=== PATIENT | female | born 1945 | race Hispanic/Latino ===

== ENCOUNTER 2017-01-23 07:52 | Day surgery (SDC) | payer MEDICARE, OTHER ==
[2015-06-29 10:13] VITALS: BMI 20.7
[2017-01-23] MEDS ORDERED: Propofol 10 mg/ml Inj (20 ML) ONE (09:15)
[2017-01-23] MEDS ORDERED: ePHEDrine 50 mg/ml Inj ONE (10:18)
[2017-01-23] MEDS ORDERED: Sodium Chloride 0.9% 1,000 ML IV SCH (10:30)
[2017-01-23 11:57] VITALS: BP 120/78; PULSE 65; RESP 16; TEMP 97.8; O2SAT 99
== END 2017-01-23 12:13 | disposition home or self-care (01) ==
LOC: ENDO 07:52
PROVIDERS: ATTEND Internal Medicine Gastroenterology
DX: Z12.11 Encounter for screening for malignant neoplasm of colon (principal); Z85.038 Personal history of other malignant neoplasm of large intestine; K57.30 Diverticulosis of large intestine without perforation or abscess without bleeding; K29.80 Duodenitis without bleeding; K29.50 Unspecified chronic gastritis without bleeding; D64.9 Anemia, unspecified; K64.8 Other hemorrhoids
CPT/HCPCS: 43239; 45380; 88305; 88342; J2001; J2704; J3010; J7040 ×2

== ENCOUNTER 2017-04-24 18:06 | Observation (INO) | payer MEDICARE, OTHER ==
[2017-04-24 18:42] VITALS: O2SAT 96
[2017-04-24] MEDS ORDERED: TDAP Vaccine 0.5 mL Syr IM ONE (19:06)
--- NOTE | 2017-04-24 21:07 | CT ---
EXAM: CT Head Without Intravenous Contrast EXAM DATE/TIME: 04/24/2017 7:06 PM CLINICAL HISTORY: The patient age is 71 years old and is female; Injury or trauma; Fall; Initial encounter; Abrasion; Face and forehead; Injury date: 04-24-17; Injury details: Abrasion to lt forehead and lt cheek; Patient HX: HX colon ca, HX lt breast ca 2007, recurrent lt breast ca 06/22; Additional info: Fall/ head injury Facility exam id and description: Ct heads head w/o contrast TECHNIQUE: Axial computed tomography images of the head/brain without intravenous contrast. All CT scans at this facility use one or more dose reduction techniques, viz.: automated exposure control; ma/kV adjustment per patient size (including targeted exams where dose is matched to indication; i.e. head); or iterative reconstruction technique. Coronal and sagittal reformatted images were created and reviewed. COMPARISON: No relevant prior studies available. FINDINGS: Brain: There is minimal increased density in the left anterior parafalcine region, which may represent a vessel although a small amount of extra-axial hemorrhage is suggested. This is visualized on series 2 image 13. There are small periventricular foci of hypodensity, likely representing small vessel ischemic disease in a patient this age. The acuity of the white matter disease is indeterminate. The white-villarreal differentiation is preserved demonstrating no acute territorial type infarct. There is mild prominence of the ventricles, with slight prominence of the sulci, compatible with atrophy. Midline shift: There is no midline shift. Ventricles: See above. Bones/joints: The calvarium demonstrates no evidence for a depressed fracture. Soft tissues: There is soft tissue swelling/hematoma of the left frontal scalp. Vasculature: There is atherosclerotic calcification of the cavernous internal carotid arteries. Sinuses: No acute sinusitis. Mastoid air cells: No mastoid effusion. IMPRESSION: 1. There is soft tissue swelling/hematoma of the left frontal scalp. 2. There is minimal increased density in the left anterior parafalcine region, which may represent a vessel, although a small amount of extra-axial hemorrhage is suggested. A follow-up CT in 12-24 hours is recommended. 3. No acute territorial type infarct. 4. Minimal to mild atrophy. 5. There are small periventricular foci of hypodensity, likely representing small vessel ischemic disease in a patient this age.
--- NOTE | 2017-04-24 21:12 | CT ---
EXAM: CT Maxillofacial Without Intravenous Contrast EXAM DATE/TIME: 04/24/2017 7:06 PM CLINICAL HISTORY: The patient age is 71 years old and is female; Injury or trauma; Fall; Initial encounter; Abrasion; Cheek bone and forehead; Left; Injury date: 04-24-17; Injury details: Abrasion to lt forehead and lt cheek; Patient HX: HX colon ca, HX lt breast ca 2007, recurrent lt breast ca 06/22; Additional info: Fall, facial injury Facility exam id and description: Ct faces maxillofacial w/o contrast TECHNIQUE: Axial computed tomography images of the face without intravenous contrast. All CT scans at this facility use one or more dose reduction techniques, viz.: automated exposure control; ma/kV adjustment per patient size (including targeted exams where dose is matched to indication; i.e. head); or iterative reconstruction technique. Coronal and sagittal reformatted images were created and reviewed. COMPARISON: No relevant prior studies available. FINDINGS: Bones/joints: No acute facial bone fracture is visualized. Soft tissues: There is mild soft tissue swelling/hematoma of the left frontal scalp. Orbits: There is small focus of gas is visualized superior to each optic globe, likely within the superior conjunctival fornices. This is likely incidental. No retrobulbar hematoma or post septal swelling is visualized within the orbits. Sinuses: There is minimal mucosal thickening with a small mucous retention cyst or polyp in the left maxillary sinus. Dental: Multiple teeth are absent. Nasopharynx: There is mild nasal septal deviation to the right. IMPRESSION: 1. No acute facial bone fracture is visualized. 2. There is mild soft tissue swelling/hematoma of the left frontal scalp. 3. Additional findings described above.
--- NOTE | 2017-04-24 21:31 | ED PDOC ---
Arrival/HPI - General Historian: Patient - History of Present Illness Time/Duration: Other (17:00 today) Context: Tripped <Erica Medrano - Last Filed: 04/25/17 10:31> <Jen Barron - Last Filed: 04/25/17 15:38> - General Chief Complaint: Trauma Time Seen by Provider: 04/24/17 19:05 - History of Present Illness Narrative History of Present Illness (Text): 04/24/17 21:30 A 71 year old female presents to the emergency department with a contusion to her forehead s/p mechanical fall at approximately 17:00. Patient reports she tripped while walking on the sidewalk and fell hitting her forehead on the ground. Patient denies any other injuries, loss of consciousness, headache, dizziness, neck pain, nausea, vomiting, abdominal pain, back pain, chest pain, shortness of breath, extremity pain or any other complaints. Patient is unsure of her last tetanus shot. PMD: Dr. Randolph (Erica Medrano) Past Medical History - Provider Review Nursing Documentation Reviewed: Yes - Cardiac Hx Hypertension: Yes - Pulmonary Hx Respiratory Disorders: No - Neurological Hx Neurological Disorder: No Hx Paralysis: No - HEENT Hx HEENT Disorder: No - Renal Hx Renal Disorder: No - Endocrine/Metabolic Hx Endocrine Disorders: No - Hematological/Oncological Hx Blood Transfusions: Yes (9 YRS AGO) Hx Blood Transfusion Reaction: No - Integumentary Other/Comment: CA of left breast and colon ca - Musculoskeletal/Rheumatological Hx Musculoskeletal Disorders: No - Gastrointestinal Hx Gastrointestinal Disorders: No - Genitourinary/Gynecological Hx Genitourinary Disorders: No - Psychiatric Hx Psychophysiologic Disorder: No Hx Emotional Abuse: No Hx Physical Abuse: No Hx Substance Use: No - Surgical History Other/Comment: ca left breast, colon ca - Anesthesia Hx Anesthesia Reactions: No Hx Malignant Hyperthermia: No - Suicidal Assessment Feels Threatened In Home Enviroment: No <Erica Medrano - Last Filed: 04/25/17 10:31> Family/Social History - Physician Review Nursing Documentation Reviewed: Yes Family/Social History: No Known Family HX Smoking Status: Never Smoked Hx Alcohol Use: No Hx Substance Use: No <Erica Medrano - Last Filed: 04/25/17 10:31> Allergies/Home Meds <Erica Medrano - Last Filed: 04/25/17 10:31> <Jen Barron - Last Filed: 04/25/17 15:38> Allergies/Adverse Reactions: Allergies No Known Allergies Allergy (Verified 04/25/17 03:39) Home Medications: Home Meds Medication Instructions Recorded Confirmed Lisinopril [Zestril] 20 mg PO QAM 06/30/15 04/25/17 Metoprolol Tartrate [Lopressor] 12.5 mg PO BID 06/30/15 04/25/17 Multivit/Iron/Folic Acid/Hb179 1 each PO DAILY 07/09/15 04/25/17 [[place] Multivit For Women Caplet] Calcium Carbonate/Vitamin D3 1 each PO DAILY 01/15/17 04/25/17 [Calcium 600 + Vit D Tablet] Review of Systems - Physician Review All systems were reviewed & negative as marked: Yes - Review of Systems Respiratory: absent: SOB Cardiovascular: absent: Chest Pain Gastrointestinal: absent: Abdominal Pain, Nausea, Vomiting Musculoskeletal: absent: Back Pain, Neck Pain, Other (extremity pain) Skin: Other (constusion to forehead) Neurological: absent: Headache, Dizziness <Erica Medrano - Last Filed: 04/25/17 10:31> Physical Exam Vital Signs Reviewed: Yes Temperature: Afebrile Blood Pressure: Hypertensive Pulse: Regular Respiratory Rate: Normal Appearance: Positive for: Well-Appearing, Non-Toxic, Comfortable Pain Distress: None Mental Status: Positive for: Alert and Oriented X 3 - Systems Exam Head: Present: Contusion, Swelling, Ecchymosis, Other (Large hematoma over left side of forehead. No step off or crepitus. ). No: Atraumatic, Tenderness (No periorbital tenderness.) Pupils: Present: PERRL Extroacular Muscles: Present: EOMI. No: Entrapment Conjunctiva: Present: Normal Ears: Present: Normal, NORMAL TM Mouth: Present: Moist Mucous Membranes. No: Drooling, Trismus Pharnyx: Present: Normal Nose (External): Present: Abrasion, Contusion. No: Atraumatic, Other (No septal hematoma) Neck: Present: Normal Range of Motion, Trachea Midline. No: MIDLINE TENDERNESS , Paraspinal Tenderness Respiratory/Chest: Present: Clear to Auscultation, Good Air Exchange. No: Respiratory Distress, Accessory Muscle Use, Tender to Palpation Cardiovascular: Present: Regular Rate and Rhythm, Normal S1, S2. No: Murmurs Abdomen: Present: Normal Bowel Sounds. No: Tenderness, Distention, Peritoneal Signs, Other (ecchymosis) Back: Present: Normal Inspection. No: Midline Tenderness, Paraspinal Tenderness , Other (ecchymosis) Upper Extremity: Present: Normal Inspection, Normal ROM, NORMAL PULSES, Neurovascularly Intact. No: Cyanosis, Edema, Tenderness, Swelling, Erythema, Temperature Abnormalties, Deformity Lower Extremity: Present: Normal Inspection, NORMAL PULSES, Normal ROM, Neurovascularly Intact, Other (Abrasions to anterior aspect of bilateral knees) . No: Edema, CALF TENDERNESS, Tenderness, Swelling, Deformity, Temperature Abnormalties Neurological: Present: GCS=15, Speech Normal, Motor Func Grossly Intact, Normal Sensory Function, Normal Cerebellar Funct Skin: Present: Warm, Dry, Normal Color. No: Rashes Psychiatric: Present: Alert, Oriented x 3, Normal Mood <Erica Medrano - Last Filed: 04/25/17 10:31> Vital Signs Temp Pulse Resp BP Pulse Ox 04/24/17 18:43 98.1 F 75 19 197/82 H 96 04/24/17 18:41 98.1 F 75 19 197/82 H 96 Medical Decision Making - Lab Interpretations I have reviewed the lab results: Yes <Erica Medrano - Last Filed: 04/25/17 10:31> <Jen Barron - Last Filed: 04/25/17 15:38> ED Course and Treatment: 04/24/17 21:30 Impression: A 71 year old female with contusion to forehead after mechanical fall Plan: -- Head CT -- Maxillofacial CT -- EKG -- Labs -- Boostrix vaccine -- Reassess and disposition Progress Notes: Report Date : 04/24/2017 21:07:00 EXAM: CT Head Without Intravenous Contrast Dictated By: Tom Herron MD, MD IMPRESSION: 1. There is soft tissue swelling/hematoma of the left frontal scalp. 2. There is minimal increased density in the left anterior parafalcine region, which may represent a vessel, although a small amount of extra-axial hemorrhage is suggested. A follow-up CT in 12-24 hours is recommended. 3. No acute territorial type infarct. 4. Minimal to mild atrophy. 5. There are small periventricular foci of hypodensity, likely representing small vessel ischemic disease in a patient this age. Report Date : 04/24/2017 21:11:00 EXAM: CT Maxillofacial Without Intravenous Contrast Dictated By: Tom Herron MD, MD IMPRESSION: 1. No acute facial bone fracture is visualized. 2. There is mild soft tissue swelling/hematoma of the left frontal scalp. 3. Additional findings described above. Case endorsed to Dr. Barron, pending lab results, consults and re-evaluation. (Erica Medrano) 04/24/17 23:17 Patient seen and evaluated with PA. On exam, she denies LOC. No pain with eye movements. No visual acuity deficits. No focal motor or sensory deficits. Denies syncope, denies chest pain or sob. Repeat BP at 2300 ia 140/60. States no worsening of headache. No new symptoms. She appears comfortable. Case d/w Dr. Flores accepts admission for Dr. Randolph. Will consult neurology I have paged Dr. Herzog to review CT reading and case. Patient in no distress at 2300, aware of treatment plan. (Jen Barron) - Lab Interpretations Lab Results: 04/24/17 21:43 04/24/17 21:43 Lab Results 04/24/17 21:43: WBC 8.1 D, RBC 4.93, Hgb 15.1, Hct 45.1, MCV 91.5, MCH 30.6, MCHC 33.5, RDW 13.7, Plt Count 186, MPV 10.3, Gran % 66.5, Lymph % (Auto) 25.3, Bond % (Auto) 4.5, Eos % (Auto) 3.2, Baso % (Auto) 0.5, Gran # 5.35, Lymph # 2.0 , Bond # 0.4, Eos # 0.3, Baso # 0.04 04/24/17 21:43: Sodium 140, Potassium 4.1, Chloride 104, Carbon Dioxide 25, Anion Gap 15, BUN 16, Creatinine 0.7, Est GFR ( Amer) > 60, Est GFR (Non- Af Amer) > 60, Random Glucose 94, Calcium 9.3, Total Bilirubin 0.8, AST 26, ALT 38, Alkaline Phosphatase 85, Lactate Dehydrogenase 434, Total Creatine Kinase 91 , Troponin I < 0.01, Total Protein 7.4, Albumin 4.0, Globulin 3.3, Albumin/ Globulin Ratio 1.2 04/24/17 21:43: PT 10.4, INR 0.91 L, APTT 29.5 - RAD Interpretation Radiology Orders: 04/24/17 19:06 HEAD W/O CONTRAST [CT] Stat MAXILLOFACIAL W/O CONTRAST [CT] Stat - Medication Orders Current Medication Orders: Lisinopril (Zestril) 20 mg PO QAM [facility] Last Admin: 04/25/17 09:33 Dose: 20 mg Metoprolol Tartrate (Lopressor) 12.5 mg PO BID [facility] Last Admin: 04/25/17 09:33 Dose: 12.5 mg Discontinued Medications Acetaminophen (Tylenol 325mg Tab) 650 mg PO ONCE STA Stop: 04/24/17 22:49 Last Admin: 04/24/17 23:26 Dose: 650 mg MAR Pain/Vitals Document 04/24/17 23:26 OCS (Rec: 04/24/17 23:26 OCS [facility] [id number]) Pain Reassessment Is This A Pain ReAssessment? Yes Sleep Is patient sleeping during reassessment? No Presence of Pain Presence of Pain Yes Pain Scale Used Pain Scale Used Numeric Location Left, Right or Bilateral Left Pain Location Body Plaster Maker Description Constant Intensity 8 Scale Used Numeric Aggravating Factors ADL's Tetanus/Reduced Diphtheria/Acell Pertussis (Boostrix Vaccine Inj) 0.5 ml IM .ONCE ONE Stop: 04/24/17 19:07 Last Admin: 04/24/17 19:30 Dose: 0.5 ml Immunization Registry Document 04/24/17 19:30 CNR (Rec: 04/24/17 19:49 CNR [id number]) Immunization Registry Consent Date 04/24/17 - Scribe Statement The provider has reviewed the documentation as recorded by the Scribe <Erica Medrano - Last Filed: 04/25/17 10:31> <Jen Barron - Last Filed: 04/25/17 15:38> - Scribe Statement Elena Gilmore Provider Scribe Attestation: All medical record entries made by the Scribe were at my direction and personally dictated by me. I have reviewed the chart and agree that the record accurately reflects my personal performance of the history, physical exam, medical decision making, and the department course for this patient. I have also personally directed, reviewed, and agree with the discharge instructions and disposition. (Erica Medrano) Disposition/Present on Arrival - Present on Arrival History of DVT/PE: No History of Uncontrolled Diabetes: No Urinary Catheter: No History of Decub. Ulcer: No History Surgical Site Infection Following: None <Erica Medrano - Last Filed: 04/25/17 10:31> - Present on Arrival Any Indicators Present on Arrival: No - Disposition Have Diagnosis and Disposition been Completed?: Yes Disposition Time: 22:00 Patient Plan: Admission, Observation <Jen Barron - Last Filed: 04/25/17 15:38> - Disposition Diagnosis: Closed head injury, Abnormal head CT Disposition: HOSPITALIZED Patient Problems: Current Active Problems Problem Status Onset Abnormal head CT Acute Closed head injury Acute Condition: FAIR
[2017-04-24 21:54] LABS: BASO # 0.04 K/mm3 (0.0-2.0); BASO % 0.5 % (0.0-3.0); EOS # 0.3 (0.0-0.7); EOS % 3.2 % (1.5-5.0); GRAN # 5.35 (1.4-6.5); GRAN % 66.5 % (50.0-68.0); HEMOGLOBIN 15.1 g/dL (12.0-16.0); LYMPH % 25.3 % (22.0-35.0); MEAN CELL VOLUME 91.5 fl (80.0-105.0); MEAN CORPUSCULAR HEMOGLOBIN 30.6 pg (25.0-35.0); MEAN CORPUSCULAR HGB CONC 33.5 g/dl (31.0-37.0); MEAN PLATELET VOLUME 10.3 fl (7.0-11.0); MONO # 0.4 (0.1-0.6); MONO % 4.5 % (1.0-6.0); RBC 4.93 10^6/uL (3.5-6.1); RED CELL DISTRIBUTION WIDTH 13.7 % (11.5-14.5); WHITE BLOOD COUNT 8.1 10^3/ul (4.5-11.0)
[2017-04-24 22:04] LABS: ALB/GLOB RATIO 1.2 (1.1-1.8); ALT/SGPT 38 U/L (7-56); AST/SGOT 26 U/L (14-36); BLOOD UREA NITROGEN 16 mg/dL (7-21); CALCIUM 9.3 mg/dL (8.4-10.5); GFR AFRICAN-AMERICAN > 60; GFR NON-AFRICAN AMERICAN > 60
[2017-04-24 22:15] LABS: TROPONIN I < 0.01 ng/mL
[2017-04-24 22:23] LABS: INR 0.91 (0.93-1.08); PARTIAL THROMBOPLASTIN TIME 29.5 Seconds (25.1-36.5); PROTHROMBIN TIME 10.4 SECONDS (9.4-12.5)
[2017-04-25 03:27] VITALS: BMI 21.6
[2017-04-25 03:56] VITALS: BP 155/89
--- NOTE | 2017-04-25 07:36 | CP.PCM.CON ---
<Daria Beintez - Last Filed: 04/25/17 14:03> History of Present Illness - History of Present Illness History of Present Illness: PGY-[address] Herzog Consult: Abnormal Head CT Ms Pena, 71F, with CHF, HTN, Hx colon and breast CA, presented to ED with a contusion to her forehead s/p mechanical fall. Patient reports that her shoe was caught between tiles on the floor, she tripped, fell hitting her forehead on the ground. She was able to get up on her own. ROS - Denies any other injuries, vision changes, loss of consciousness, headache , dizziness, neck pain, nausea, vomiting, abdominal pain, back pain, chest pain , shortness of breath, extremity pain or any other complaints. In the ED, VSS except SBP fluctuate from 100 to 197. CBC, CMP unremarkable. Trops neg x [address]: (+) increase density L anterior parafalcine region, suspected hemorrhage. suggested f/u CT in 24 hrs chronic small vessel ischemic disease. Facialmaxillary CT: mild soft tissue swelling/hematoma L frontal scalp PMD: Dr. Randolph PMH CHF, HTN R anastomosis ulcer, chronic Gastritis, Diverticulosis L breast cancer (invasive ductal) s/p L modified radical mastectomy and radiation 2015 Hx colon cancer, s/p partial bowel resection, s/p chemotherapy PSH modified radical mastectomy 2016 s/p partial bowel resection Sister cancer SH Work as landlord, live alone quit smoking 40 years ago. no drink/drugs All NKDA Med Metoprolol 12.5 BID Lisinopril 20 AM Multivitamin, Ca, Vit D Outpt onco: Dr Cardoso Past Patient History - Past Social History Smoking Status: Former Smoker - CARDIAC Hx Cardiac Disorders: Yes Hx Congestive Heart Failure: Yes (x 1 9 yrs ago) Hx Hypertension: Yes - PULMONARY Hx Respiratory Disorders: No - NEUROLOGICAL Hx Neurological Disorder: No - HEENT Hx HEENT Problems: No - RENAL Hx Chronic Kidney Disease: No - ENDOCRINE/METABOLIC Hx Endocrine Disorders: No - HEMATOLOGICAL/ONCOLOGICAL Hx Blood Disorders: Yes Hx Anemia: Yes Hx Cancer: Yes (colon/left breat 2007/ recurrent Left breast CA 06/22) Other/Comment: blood transfusions, chemo/radiation 2007 - INTEGUMENTARY Hx Dermatological Problems: Yes Other/Comment: CA of left breast and colon ca - MUSCULOSKELETAL/RHEUMATOLOGICAL Hx Musculoskeletal Disorders: Yes Hx Arthritis: Yes (hands) Hx Falls: Yes (tripped & fell today) - GASTROINTESTINAL Hx Gastrointestinal Disorders: No - GENITOURINARY/GYNECOLOGICAL Hx Genitourinary Disorders: No - PSYCHIATRIC Hx Psychophysiologic Disorder: No Hx Emotional Abuse: No Hx Physical Abuse: No Hx Substance Use: No - SURGICAL HISTORY Hx Surgeries: Yes Other/Comment: ca left breast, colon ca, colectomy with hernia repair, partial mastectomy 2007 then a radical mastectomy 07/2016, horace cath insertion & removal - ANESTHESIA Hx Anesthesia Reactions: No Hx Malignant Hyperthermia: No Meds Allergies/Adverse Reactions: Allergies Allergy/AdvReac Type Severity Reaction Status Date / Time No Known Allergies Allergy Verified 04/25/17 03:39 Physical Exam - Head Exam Head Exam: NORMAL INSPECTION, NORMOCEPHALIC Additional comments: hematoma on L forehead - Eye Exam Eye Exam: EOMI, Normal appearance, PERRL. absent: Scleral icterus Pupil Exam: NORMAL ACCOMODATION - ENT Exam ENT Exam: Mucous Membranes Moist - Neck Exam Additional comments: supple - Respiratory Exam Respiratory Exam: Clear to Auscultation Bilateral, NORMAL BREATHING PATTERN. absent: Rales, Rhonchi, Wheezes - Cardiovascular Exam Cardiovascular Exam: REGULAR RHYTHM, +S1, +S2 - GI/Abdominal Exam GI & Abdominal Exam: Normal Bowel Sounds, Soft. absent: Tenderness - Extremities Exam Extremities exam: Positive for: normal inspection - Neurological Exam Neurological exam: Alert, CN II-XII Intact, Normal Gait, Oriented x3, Reflexes Normal Additional comments: AAO x3 recall 3/3 negative rhomberg [id number] intact motor 5/5 sensory intact - Psychiatric Exam Psychiatric exam: Normal Affect, Normal Mood - Skin Skin Exam: Dry, Warm Results - Vital Signs Recent Vital Signs: Last Vital Signs Temp 98 F 04/25/17 01:55 Pulse 59 L 04/25/17 06:00 Resp 20 04/25/17 01:55 BP 155/89 H 04/25/17 03:30 Pulse Ox 96 04/24/17 18:43 - Labs Result Diagrams: 04/24/17 21:43 04/24/17 21:43 Assessment & Plan - Assessment and Plan (Free Text) Plan: Ms Pena, 71F, with CHF, HTN, Hx colon and breast CA, presented to ED with a contusion to her forehead s/p mechanical fall. CT head showed (+) increase density L anterior parafalcine region, suspected hemorrhage and chronic small vessel ischemic disease. Pt's SBP was in 190s at a time. Neurology was consulted for possible intracranial hemorrhage at anterior parafalcine area with chronic small vessel ischemic disease. Facialmaxillary CT showed mild soft tissue swelling/hematoma L frontal scalp - Repeat MRI to r/o delay bleed and given breast ca hx - Maintain SBP 130-140 to prevent hypoperfusion and bleed risk - If MRI is negative, pt is neurologically stable to go home, and should initiate aspirin 81 daily and lipitor 20 daily for primary stroke prevention s/r/d/w Dr. Herzog <Jcarlos Herzog - Last Filed: 04/26/17 10:00> Results - Vital Signs Recent Vital Signs: Last Vital Signs Temp 97.9 F 04/25/17 06:00 Pulse 48 L 04/25/17 06:00 Resp 18 04/25/17 06:00 BP 155/89 H 04/25/17 03:30 Pulse Ox 96 04/25/17 06:00 - Labs Result Diagrams: 04/24/17 21:43 04/24/17 21:43 Labs: Laboratory Results - last 24 hr 04/25/17 10:00 Blood Type O POSITIVE Antibody Screen Negative BBK History Checked No verified bt Attending/Attestation - Attestation I have personally seen and examined this patient.: Yes I have fully participated in the care of the patient.: Yes I have reviewed all pertinent clinical information: Yes
[2017-04-25 09:10] VITALS: PULSE 48; RESP 18; TEMP 97.9
--- NOTE | 2017-04-25 10:04 | CARD ---
APPROVED REPORT EKG Measurement Heart [id number] <Conclusion> Normal sinus rhythm Possible septal infarct, age undetermined Abnormal ECG
[2017-04-25] MEDS ORDERED: Gadodiamide 287 MG/ML VIAL (15ML) IV ONE (16:18)
--- NOTE | 2017-04-25 16:36 | MRI ---
PROCEDURE: MRI BRAIN WITH AND WITHOUT CONTRAST HISTORY: head injury COMPARISON: None. TECHNIQUE: Multiplanar, multisequence MR images of the brain were obtained with and without intravenous contrast enhancement. 15 cc of Omniscan FINDINGS: HEMORRHAGE: None DWI: No evidence of an acute or early subacute infarction. BRAIN PARENCHYMA: No mass,mass effect or edema. No atrophy or chronic microvascular ischemic changes. ENHANCEMENT: No abnormal intracranial enhancement. VENTRICLES: Unremarkable. No hydrocephalus. CRANIUM: Unremarkable. ORBITS: Grossly unremarkable. PARANASAL SINUSES/MASTOIDS: Clear VASCULAR SYSTEM: Skull base flow voids intact. OTHER FINDINGS: None . IMPRESSION: Unremarkable pre and post contrast enhanced MRI of the brain.
--- NOTE | 2017-04-26 05:04 | HP ---
CHIEF COMPLAINT AND HISTORY OF PRESENT ILLNESS: This is a 71-year-old female, who is coming into the hospital with past medical history of hypertension, colon cancer, and breast cancer. The patient says that she fell and hit her head, landing on the left side of her forehead. She said that her foot caught in a tile on the floor and she tripped. The patient was able to get up and came to the ER for further management. The patient denies any loss of consciousness. She does state she has had headache, but it has improved. She denies any nausea or vomiting. No dysuria or frequency. No nocturia. No weakness in the arms or the legs. She denies any back pain. No blurred vision. REVIEW OF SYSTEMS: All of the review of symptoms are within normal limits except as mentioned. ALLERGIES: NO KNOWN DRUG ALLERGIES. HOME MEDICATIONS: She is on lisinopril, Lopressor, and multivitamins. PAST MEDICAL HISTORY: Hypertension; CHF, chronic and stable; systolic dysfunction; breast cancer of the left breast with modified radical mastectomy and radiation in 2016; colon cancer, status post partial bowel resection with chemotherapy. PAST SURGICAL HISTORY: Modified radical mastectomy, partial bowel resection secondary to colon cancer. FAMILY HISTORY: The patient has cancer in her family. SOCIAL HISTORY: She lives alone. She quit smoking about 40 years ago. She denies drugs and alcohol. PHYSICAL EXAMINATION VITAL SIGNS: The patient has a temperature of 97.9, pulse of 48, , O2 saturation is 96%, height is 5 feet 5 inches, weight is 130 pounds, BMI is 21.6. GENERAL: The patient lying in bed, uncomfortable, and in no acute distress. HEENT: Atraumatic and normocephalic. Anicteric sclerae. Moist mucosa. [place]ugio conjunctivae. No oral lesions. NECK: No JVD, anterior and posterior adenopathy, thyromegaly, or bruits. CARDIOVASCULAR: S1 and S2 regular. No murmur, rubs, or gallop. LUNGS: Clear to auscultation bilaterally. No wheezes, rales, or rhonchi. ABDOMEN: Bowel sounds are positive. Soft, nontender and nondistended. No hepatosplenomegaly. No rebound and no guarding. EXTREMITIES: No cyanosis, clubbing, or edema. NEUROLOGIC: No facial asymmetry. Tongue is midline. No uvula deviation. Power is 5/5 upper extremity and lower extremity. Sensation intact in upper extremity and lower extremity. PSYCHIATRIC: She is awake, alert and oriented x3. No anxiety or depression. She has normal affect. GENITOURINARY: No CVA tenderness. VASCULAR: 2+ pulses in the carotid pulses and pedal pulses. SKIN: No erythema or nodules SPINE: Shows normal curvature. LABORATORY DATA: Reviewed. White count of 8.1 and hemoglobin 16.1. Chemistries, 140 sodium, potassium 4.1. CT of the head has been reviewed and showed soft tissue swelling and hematoma of the left frontal scalp, has minimal increased density in the left anterior parafalcine region , small amount of hemorrhage is not excluded. There is no acute infarct. Maxillofacial CAT scan shows no acute facial bone fractures. There is mild soft tissue swelling and hematoma of the left frontal scalp. MRI of the brain shows unremarkable pre- and postcontrast enhanced emboli. EKG shows sinus rhythm at 66, no ST-T changes. ASSESSMENT: 1. Fall. 2. Hematoma of left frontal lobe. 3. Hypertension. 4. Congestive heart failure secondary to systolic dysfunction, chronic and stable. 5. History of breast cancer, status post left modified radical mastectomy and radiation in 2016. 6. Colon cancer, status post partial bowel resection, status post chemotherapy. PLAN: The patient is admitted to the hospital. She was continued on lisinopril for hypertension. She is on Lopressor. She was seen by Dr. Herzog. MRI was done that did not show any significant abnormalities. No signs of bleeding. The patient had no neurological symptoms. She was discharged to follow up with her primary care doctor, Dr. Randolph. CONDITION: Stable. ACTIVITIES: Increase as tolerated. Robert Flores MD
== END 2017-04-25 17:44 | disposition home or self-care (01) ==
LOC: ED 18:06 → ERH 22:47 → 3RNO 04-25 01:47
PROVIDERS: ADMIT Internal Medicine Nephrology; ATTEND Internal Medicine Nephrology
DX: S00.83XA Contusion of other part of head, initial encounter (principal); I11.0 Hypertensive heart disease with heart failure; I50.22 Chronic systolic (congestive) heart failure; K57.90 Diverticulosis of intestine, part unspecified, without perforation or abscess without bleeding; K29.50 Unspecified chronic gastritis without bleeding; Z85.3 Personal history of malignant neoplasm of breast; Z87.891 Personal history of nicotine dependence; Z85.038 Personal history of other malignant neoplasm of large intestine; Z90.12 Acquired absence of left breast and nipple; W01.198A Fall on same level from slipping, tripping and stumbling with subsequent striking against other object, initial encounter; Y92.480 Sidewalk as the place of occurrence of the external cause; Y93.01 Activity, walking, marching and hiking; Z92.3 Personal history of irradiation; Z92.21 Personal history of antineoplastic chemotherapy
CPT/HCPCS: 36415; 70450; 70486; 70553; 80053; 82550; 83615; 84484; 85025; 85610; 85730; 86850; 86900; 90471; 90715; 93005; 99285; A9579; G0378

== ENCOUNTER 2018-05-13 09:39 | Outpatient (CLI) | payer MEDICARE, OTHER | END 2018-05-13 09:40 | disposition home or self-care (01) | LOC: RAD 09:40 ==